=== PATIENT | male | born 1965 | race Caucasian/White ===

== ENCOUNTER → 2017-04-25 | Outpatient (CLI) | payer MEDICAID ==
[2014-08-29 09:15] VITALS: BMI 28.6
[~2017-04-25] MED LIST: ACET-1966 PO; ALB17R INH; ALBU8.5H12 IH; AMO500 PO; BACDS PO; BENZ200C38 PO; CEFU500T10 PO; CEP250 PO; CEP500 PO; CIP500 PO; CIPR-214 PO; CIPR-344 PO; CIPR-368 PO; CLIN300C99 PO; CYC10 PO; CYCL10TA29 PO; FAM20 PO; FLONASE; FLUC150T40 PO; GAB300 PO; HYDR-3083 PO; HYDR-385 PO; HYDR-4309 PO; IBU600 PO; IBUP800T37 PO; LAMO25TA4 PO; LEVO500T83 PO; LISI2.5T60 PO; LOR5 PO; LOR5/325 PO; LOR7.5/325 PO; MEDROL DOSEPAK; MEPE50TA29 PO; METR-1 PO; METR-160 PO; MIL50PT GT; MUSCLE RELAXANT; NAP250 PO; NAPR-1043 PO; NITR-1 PO; NITR-57 PO; NO MEDS; OMEP-137 PO; OXYB5TAB80 PO; PANT40TA65 PO; PEN VK PO; PEN250 PO; PENICILLIN; PER PO; PHEN100T27 PO; PHEN200T32 PO; PHENA200 PO; PRE20 PO; PRED-1 PO; PRED20TA6 PO; PRO25 PO; PROM-110 PO; SULF-198 PO; TRAM-627 PO; VICODIN PO; ZPAK; [UNRECOGNIZED DRUG - OTHER]; [UNRECOGNIZED DRUG - REMARK]; [UNRECOGNIZED DRUG - REMARK]
--- NOTE | 2017-04-25 15:09 | RADIOLOGY IMAGING REPORT ---
FACILITY: [facility] PATIENT NAME: Master Bush : 1965 MR: [id number] V: [id number] EXAM DATE: ORDERING PHYSICIAN: OSMIN QUINTEROS TECHNOLOGIST: Location: [facility] [place] Patient: Master Bush : 1965 Visit/Account:[id number] Date of Sevice: 04/25/2017 EXAMINATION: Left shoulder, 3 views 04/25/2017 1:59 PM HISTORY: Left shoulder pain. No known injury. COMPARISON: None FINDINGS: Mild spurring or hypertrophy of the AC joint. Subacromial joint space is well-preserved. There is some heterogeneity and lucencies in the humeral head along the cuff insertion. Glenohumera l articulation is normal. No acute-appearing bony finding. IMPRESSION: AC joint hypertrophy or spurring and humeral head findings which can be secondary feature s of cuff pathology. Report Dictated By: Ricardo Cat MD at 04/25/2017 3:04 PM Report E-Signed By: Ricardo Cat MD at 04/25/2017 3:06 PM WSN:[email or web address]
--- NOTE | 2017-04-25 15:19 | RADIOLOGY IMAGING REPORT ---
FACILITY: [facility] PATIENT NAME: Master Bush : 1965 MR: [id number] V: [id number] EXAM DATE: ORDERING PHYSICIAN: OSMIN QUINTEROS TECHNOLOGIST: Location: [facility] Patient: Master Bush : 1965 Visit/Account:[id number] Date of Sevice: 04/25/2017 EXAMINATION: MRI lumbar spine without IV contrast HISTORY: Low back pain, left lower extremity radiation. COMPARISON: Lumbar spine radiographs from 01/30/[address] of the lumbar spine from 08/11/2015. TECHNIQUE: Multi-planar, multi-sequence lumbar spine MRI was performed without intravenous contrast administration. FINDINGS: Alignment: Normal. Vertebral marrow signal: Degenerative endplate changes on the left at L5-S1. Distal thoracic cord: Negative. Conus: negative, terminates at the mid L1 level. Cauda equina: Negative. Paravertebral soft tissues: Negative. Visualized abdominal and pelvic structures: Negative. Disc spaces: There is disc desiccation of the lumbar spine. Lower thoracic spine: Normal. L1-2: Anterior bony spurring with a mild concentric disc bulge. No significant central canal or fora fuentes stenosis. L2-3: Anterior bony spurring with a broad-based disc protrusion with annular tear, bilateral facet hy pertrophy and mild ligamentum flavum laxity. Mild bilateral lateral recess stenosis and mild bilater al foraminal stenosis, without significant central canal stenosis. L3-4: Mild concentric disc bulge with bilateral facet hypertrophy and mild ligamentum flavum laxity. Mild bilateral lateral recess stenosis and mild bilateral foraminal stenosis. No significant centra l canal stenosis. L4-5: Mild concentric disc bulge and bilateral facet hypertrophy and ligamentum flavum laxity. Mild bilateral foraminal stenosis without significant central canal stenosis. L5-S1: Mild disc space narrowing with a moderate disc bulge eccentric to the left and bilateral facet hypertrophy. Mild bilateral lateral recess stenosis, moderate right and moderate to severe left for aminal stenosis, with mild mass effect on the foraminal left L5 nerve root. No significant central c anal stenosis. IMPRESSION: 1. Degenerative disc disease and facet arthropathy is worst at L5-S1 where there is moderate right a nd moderate to severe left foraminal stenosis. Please see the findings for description of individual level disease. 2. Annular tear at L2-3. Report Dictated By: Le Moyer MD at 04/25/2017 3:10 PM Report E-Signed By: Le Moyer MD at 04/25/2017 3:15 PM WSN:[id number]
== END ==
LOC: RAD 01:46
PROVIDERS: ATTEND Family Medicine
DX: M51.36 Other intervertebral disc degeneration, lumbar region (principal); M51.37 Other intervertebral disc degeneration, lumbosacral region; M51.26 Other intervertebral disc displacement, lumbar region; M51.27 Other intervertebral disc displacement, lumbosacral region; M75.82 Other shoulder lesions, left shoulder
CPT/HCPCS: 72148

== ENCOUNTER 2017-05-18 20:08 | Emergency (ER) | payer MEDICAID ==
[2014-08-29 09:15] VITALS: Ht 177.8 cm; Wt 98.9 kg
[~2017-05-18] VITALS: Ht 177.8 cm; Wt 98.9 kg
--- NOTE | 2017-05-18 20:15 | ER Report ---
History and Physical Time Seen By MD: 20:15 HPI/ROS CHIEF COMPLAINT: Right flank pain HISTORY OF PRESENT ILLNESS: 51-year-old male patient presents to emergency room with complaint of right flank pain. Patient states that he is not been feeling well for the past 3 days. Patient states that he has a history of kidney disease. He states that he has had some problems with being constipated recently. He states that his taken some stool softeners and then Ex-Lax. He states he was finally able to have a good bowel movement. States it initially was hard, then stated that he had episodes diarrhea. He states that all day today that he's been having normal bowel movements. Patient states that he is noticed that he is having some pain with urination. He denies having any fevers , chills, vomiting. Patient states that he has been nauseated. He states he is not taking any medication for this. He states he does have some discomfort with urination. He states that that is causing some irritation to his hemorrhoids. REVIEW OF SYSTEMS: Respiratory: No cough, no dyspnea. Cardiovascular: No chest pain, no palpitations. Gastrointestinal: No vomiting, no abdominal pain. Musculoskeletal: As noted above. Allergies: Coded Allergies: codeine (Verified Allergy, Mild, 05/18/17) oxycodone (Verified Allergy, Mild, BAD NIGHTMARES, 05/18/17) gabapentin (Verified Allergy, Unknown, 05/18/17) Uncoded Allergies: BLEACH (Allergy, Unknown, 08/23/13) Home Meds Reported Medications Pantoprazole Sodium (PANTOPRAZOLE SODIUM) 40 Mg Tablet.dr, 40 MG PO QAM, TAB.SR 05/18/17 Tramadol Hcl (TRAMADOL HCL) 50 Mg Tablet, 50-100 MG PO Q4-6H, TAB 05/18/17 Discontinued Reported Medications Milnacipran (SAVELLA) 50 Mg Tab, 50 MG GT, TAB 07/25/16 Lisinopril (LISINOPRIL) 2.5 Mg Tablet, 2.5 MG PO QDAY 07/25/16 Discontinued Scripts Pantoprazole Sodium (PANTOPRAZOLE SODIUM) 40 Mg Tablet.dr, 1 TAB PO QAM, #60 TAB 6 Refills Take 1 tablet 1/2 hour before eating every morning. 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 Patient has surgical history of fistula repair, cystoscopy, tonsillectomy, cyst removed. Patient has a family medical history of cancer. Reviewed Nurses Notes: Yes Hx Smoking: Yes (1 PPD SMOKER, 1 CAN CHEW EVERY 2 MOS.) Smoking Status: Current: Every Day Smoker Exposure to Second Hand Smoke?: No Hx Substance Use Disorder: No Hx Alcohol Use: Yes Constitutional Vital Sign - Last 24 Hours 05/18/17 20:13 Temp 97.8 Pulse 90 Resp 16 B/P (MAP) 131/88 Pulse Ox 92 O2 Delivery Room Air Physical Exam General Appearance: The patient is alert, has no immediate need for airway protection and no current signs of toxicity. [ ] Respiratory: Chest is non tender, lungs are clear to auscultation. Cardiac: regular rate and rhythm Gastrointestinal: Abdomen is soft and non tender, no masses, bowel sounds normal. Patient has right-sided CVA tenderness. Musculoskeletal: Neck: Neck is supple and non tender. Extremities have full range of motion and are non tender. Skin: No rashes or lesions. DIFFERENTIAL DIAGNOSIS: After history and physical exam differential diagnosis was considered for kidney stone, kidney failure, urinary tract infection, pyelonephritis. Medical Decision Making Data Points Result Diagram: 05/18/17203405/18/172034 Laboratory Hematology Test 05/18/17 20:30 05/18/17 20:35 Urine Color Yellow Urine Clarity Clear Urine pH 5.0 pH (4.8-9.5) Urine Specific [place] 1.019 Urine Protein Negative mg/dL (NEGATIVE) Urine Glucose (UA) Negative mg/dL (NEGATIVE) Urine Ketones Negative mg/dL (NEGATIVE) Urine Blood Large (NEGATIVE) Urine Nitrite Negative (NEGATIVE) Urine Bilirubin Negative (NEGATIVE) Urine Urobilinogen Negative mg/dL (0.2-1.9) Urine Leukocyte Esterase Negative (NEGATIVE) Urine RBC 14 /HPF (0-2/HPF) Urine WBC 2 /HPF (0-5/HPF) Urine Squamous Epithelial Cells None /LPF (</=FEW) Urine Bacteria Negative /HPF (NONE-FEW) Urine Mucus None /HPF (NONE-FEW) Red Blood Count 5.22 M/uL (4.00-5.60) Mean Corpuscular Volume 97.3 fL (80.0-96.0) Mean Corpuscular Hemoglobin 33.5 pg (26.0-33.0) Mean Corpuscular Hemoglobin Concent 34.4 g/dL (32.0-36.0) Red Cell Distribution Width 13.8 % (11.5-14.5) Mean Platelet Volume 10.3 fL (7.2-11.1) Neutrophils (%) (Auto) 51.9 % (39.4-72.5) Lymphocytes (%) (Auto) 34.4 % (17.6-49.6) Monocytes (%) (Auto) 9.9 % (4.1-12.4) Eosinophils (%) (Auto) 3.1 % (0.4-6.7) Basophils (%) (Auto) 0.7 % (0.3-1.4) Nucleated RBC Relative Count (auto) 0.0 /100WBC Neutrophils # (Auto) 4.9 K/uL (2.0-7.4) Lymphocytes # (Auto) 3.2 K/uL (1.3-3.6) Monocytes # (Auto) 0.9 K/uL (0.3-1.0) Eosinophils # (Auto) 0.3 K/uL (0.0-0.5) Basophils # (Auto) 0.1 K/uL (0.0-0.1) Nucleated RBC Absolute Count (auto) 0.00 K/uL Sodium Level 137 mmol/L (137-145) Potassium Level 3.5 mmol/L (3.5-5.0) Chloride Level 102 mmol/L (98-107) Carbon Dioxide Level 25 mmol/L (22-30) Blood Urea Nitrogen 17 mg/dl (9-21) Creatinine 1.40 mg/dl (0.66-1.25) Glomerular Filtration Rate Calc 53.2 Random Glucose 100 mg/dl (75-110) Calcium Level 9.0 mg/dl (8.4-10.2) Total Bilirubin 0.7 mg/dl (0.2-1.3) Aspartate Amino Transf (AST/SGOT) 23 U/L (0-35) Alanine Aminotransferase (ALT/SGPT) 43 U/L (0-56) Alkaline Phosphatase 66 U/L (0-126) Total Protein 7.8 gm/dl (6.3-8.2) Albumin 3.9 g/dl (3.5-5.0) Chemistry Test 05/18/17 20:30 05/18/17 20:35 Urine Color Yellow Urine Clarity Clear Urine pH 5.0 pH (4.8-9.5) Urine Specific Sodus 1.019 Urine Protein Negative mg/dL (NEGATIVE) Urine Glucose (UA) Negative mg/dL (NEGATIVE) Urine Ketones Negative mg/dL (NEGATIVE) Urine Blood Large (NEGATIVE) Urine Nitrite Negative (NEGATIVE) Urine Bilirubin Negative (NEGATIVE) Urine Urobilinogen Negative mg/dL (0.2-1.9) Urine Leukocyte Esterase Negative (NEGATIVE) Urine RBC 14 /HPF (0-2/HPF) Urine WBC 2 /HPF (0-5/HPF) Urine Squamous Epithelial Cells None /LPF (</=FEW) Urine Bacteria Negative /HPF (NONE-FEW) Urine Mucus None /HPF (NONE-FEW) White Blood Count 9.4 k/uL (4.5-11.0) Red Blood Count 5.22 M/uL (4.00-5.60) Hemoglobin 17.5 g/dL (14.0-18.0) Hematocrit 50.8 % (42.0-52.0) Mean Corpuscular Volume 97.3 fL (80.0-96.0) Mean Corpuscular Hemoglobin 33.5 pg (26.0-33.0) Mean Corpuscular Hemoglobin Concent 34.4 g/dL (32.0-36.0) Red Cell Distribution Width 13.8 % (11.5-14.5) Platelet Count 145 K/uL (150-450) Mean Platelet Volume 10.3 fL (7.2-11.1) Neutrophils (%) (Auto) 51.9 % (39.4-72.5) Lymphocytes (%) (Auto) 34.4 % (17.6-49.6) Monocytes (%) (Auto) 9.9 % (4.1-12.4) Eosinophils (%) (Auto) 3.1 % (0.4-6.7) Basophils (%) (Auto) 0.7 % (0.3-1.4) Nucleated RBC Relative Count (auto) 0.0 /100WBC Neutrophils # (Auto) 4.9 K/uL (2.0-7.4) Lymphocytes # (Auto) 3.2 K/uL (1.3-3.6) Monocytes # (Auto) 0.9 K/uL (0.3-1.0) Eosinophils # (Auto) 0.3 K/uL (0.0-0.5) Basophils # (Auto) 0.1 K/uL (0.0-0.1) Nucleated RBC Absolute Count (auto) 0.00 K/uL Glomerular Filtration Rate Calc 53.2 Calcium Level 9.0 mg/dl (8.4-10.2) Total Bilirubin 0.7 mg/dl (0.2-1.3) Aspartate Amino Transf (AST/SGOT) 23 U/L (0-35) Alanine Aminotransferase (ALT/SGPT) 43 U/L (0-56) Alkaline Phosphatase 66 U/L (0-126) Total Protein 7.8 gm/dl (6.3-8.2) Albumin 3.9 g/dl (3.5-5.0) Urinalysis Test 05/18/17 20:30 Urine Color Yellow Urine Clarity Clear Urine pH 5.0 pH (4.8-9.5) Urine Specific Sodus 1.019 Urine Protein Negative mg/dL (NEGATIVE) Urine Glucose (UA) Negative mg/dL (NEGATIVE) Urine Ketones Negative mg/dL (NEGATIVE) Urine Blood Large (NEGATIVE) Urine Nitrite Negative (NEGATIVE) Urine Bilirubin Negative (NEGATIVE) Urine Urobilinogen Negative mg/dL (0.2-1.9) Urine Leukocyte Esterase Negative (NEGATIVE) Urine RBC 14 /HPF (0-2/HPF) Urine WBC 2 /HPF (0-5/HPF) Urine Squamous Epithelial Cells None /LPF (</=FEW) Urine Bacteria Negative /HPF (NONE-FEW) Urine Mucus None /HPF (NONE-FEW) ED Course/Re-evaluation ED Course Patient was admitted to exam room, history of physical were obtained. Differential diagnoses were considered. On examination patient has some CVA tenderness/on the right side. A CBC, CMP, urinalysis were obtained. The labs look fairly consistent with normal. His creatinine was 1.4 which is up slightly from last month which is 1.2. Urinalysis was done which showed large blood, however on microscopic evaluation there was only 14 red blood cells per high- power field. That is approximately where he runs. Last July he had 88 and 7 red blood cells on 2 separate exams. We will go ahead and have him follow-up with his primary care provider in the next week. He is to follow-up with urology and nephrology as directed. I discussed this with the patient who verbalized understanding and agreement with plan. Decision to Disposition Date: May 18, 2017 Decision to Disposition Time: 21:07 Depart Departure Latest Vital Signs Vital Signs Date Time Temp Pulse Resp B/P (MAP) Pulse Ox O2 Delivery O2 Flow Rate FiO2 05/18/17 20:13 97.8 90 16 131/88 92 Room Air Impression: Primary Impression: Right flank discomfort Condition: Improved Disposition: HOME OR SELF-CARE Referrals: OSMIN QUINTEROS DO (PCP) Patient Instructions: Flank Pain (ED) Additional Instructions: Limit activity by pain. Get plenty of rest. Follow up with your primary care provider in the next week. Continue with normal medications. Your urine looks good, continue to follow up with urology and Nephrology as directed. DONIS FLOODP May 18, 2017 20:15
[2017-05-18] MEDS ORDERED: NS(*) 0.9% 1000 ML BAG 1,000 ML IV ONE (20:25)
[2017-05-18] MEDS ORDERED: TRAM-420 PO (20:27)
[2017-05-18] MEDS ORDERED: PANT40TA65 PO (20:28)
[2017-05-18 20:43] LABS: PLATELET COUNT, AUTOMATED 145 K/uL (150-450)
[2017-05-18 21:00] VITALS: BP 116/79
== END 2017-05-18 21:27 | disposition home or self-care (01) ==
LOC: ER 20:21
DX: R10.823 Right lower quadrant rebound abdominal tenderness (principal)
CPT/HCPCS: 81001; 82040; 82247; 82310; 82374; 82435; 82565; 82947; 84075; 84132; 84155; 84295; 84450; 84460; 84520; 85025; 99283

== ENCOUNTER → 2017-09-22 | Outpatient (CLI) | payer MEDICAID ==
[2014-08-29 09:15] VITALS: BMI 28.6
[~2017-09-22] MED LIST changes: +AMOX-559 PO; +FLUT16SP19 NS; +TRAM-420 PO
--- NOTE | 2017-09-22 19:19 | RADIOLOGY IMAGING REPORT ---
FACILITY: [facility] PATIENT NAME: Master Bush : 1965 MR: [id number] V: [id number] EXAM DATE: ORDERING PHYSICIAN: OSMIN QUINTEROS TECHNOLOGIST: Location: [facility] - [place] Patient: Master Bush : 1965 Visit/Account:[id number] Date of Sevice: 09/22/2017 Chest with lateral, 2 views. HISTORY: Cough, smoking history. COMPARISON: 08/29/2014. The heart and mediastinum are unremarkable. Pulmonary vessels are unremarkable. The lungs are mildl y voluminous. The pleural surfaces are unremarkable. No pneumothorax. Mild degenerative changes are p resent in the spine and shoulders. IMPRESSION: Voluminous lungs. Otherwise no evidence of acute cardiopulmonary disease. Report Dictated By: Jovany Ramirez MD at 09/22/2017 7:13 PM Report E-Signed By: Jovany Ramirez MD at 09/22/2017 7:14 PM [id number]
== END ==
LOC: RAD 17:37
PROVIDERS: ATTEND Family Medicine
DX: R91.8 Other nonspecific abnormal finding of lung field (principal)
CPT/HCPCS: 71046

== ENCOUNTER → 2017-09-22 | Outpatient (CLI) | payer MEDICAID ==
[2014-08-29 09:15] VITALS: Ht 177.8 cm; Wt 91.7 kg
[~2017-09-22] VITALS: Ht 177.8 cm; Wt 91.7 kg
[~2017-09-22] MED LIST changes: +LIDOCAINE/SOD BICARB 8.4% SYR ID ONE; +MIDAZOLAM 2 MG/2 ML VIAL IVP PRN; +NORMOSOL R SOLN(*) 1000 ML BAG 1,000 ML IV PRN; +ceFAZolin(*) 1 GM VIAL 1 GM in NS(*) 0.9% 100 ML ADDVANT BAG 100 ML IVPB ONE
[2017-09-22 11:19] LABS: PLATELET COUNT, AUTOMATED 152 K/uL (150-450)
== END ==
LOC: LAB 08:00 → EDSTATUS 09-26 09:20
PROVIDERS: ATTEND Urology
DX: Z01.812 Encounter for preprocedural laboratory examination (principal)
CPT/HCPCS: 36415; 81001; 82040; 82247; 82310; 82374; 82435; 82565; 82947; 84075; 84132; 84153; 84155; 84295; 84450; 84460; 84520; 85025; 87088

== ENCOUNTER → 2017-11-21 | Outpatient (REF) | payer MEDICAID ==
[2014-08-29 09:15] VITALS: BMI 28.6
[~2017-11-21] MED LIST changes: -LIDOCAINE/SOD BICARB 8.4% SYR ID ONE; -MIDAZOLAM 2 MG/2 ML VIAL IVP PRN; -NORMOSOL R SOLN(*) 1000 ML BAG 1,000 ML IV PRN; -ceFAZolin(*) 1 GM VIAL 1 GM in NS(*) 0.9% 100 ML ADDVANT BAG 100 ML IVPB ONE
== END ==
LOC: ZZSENDIN 14:42
PROVIDERS: ATTEND Physician Assistant Medical
DX: R31.9 Hematuria, unspecified (principal)
CPT/HCPCS: 81001

== ENCOUNTER → 2017-12-19 | Day surgery (SDC) | payer MEDICAID ==
[2014-08-29 09:15] VITALS: Ht 180.3 cm; Wt 91.6 kg
--- NOTE | 2017-12-14 18:40 | HISTORY AND PHYSICAL ---
DATE OF ADMISSION: December 19, 2017 CHIEF COMPLAINT Hematuria. HISTORY OF PRESENT ILLNESS Patient is a 52-year-old white male with a long history of hematuria who has been followed in the Urology Clinic for several years. He is also experiencing an episode of gross hematuria by report. His last anesthetic cystoscopy was three years ago. In the past, the patient has undergone anesthetic cystoscopies as well as cytologies which have been normal. He does have some mild chronic renal insufficiency and is followed by Dr. Bellamy. He was noted to have questionable increasing proteinuria on his last visit. However, most recent urinalysis performed on the 21 of November showed no proteinuria. He did have 22 red blood cells per high-power field. The patient is now being brought to the operating room for planned anesthetic cystoscopy with bilateral retrograde pyelograms. PAST MEDICAL HISTORY 1. Chronic kidney disease. 2. Hematuria. 3. Obstructive sleep apnea. 4. Gastroesophageal reflux disease. 5. Bipolar disease. 6. Eczema. 7. Low back pain. 8. Diverticulitis. 9. Fibromyalgia with chronic pain. 10. Sinusitis. PAST SURGICAL HISTORY 1. Meatotomy with urethral dilation. 2. Partial colectomy and cystectomy with closure of colovesical fistula. 3. Cystoscopy. CURRENT MEDICATIONS 1. Cyclobenzaprine. 2. Tramadol. 3. Albuterol. 4. Oxygen. 5. Amitriptyline. 6. Fluconazole. 7. Loratadine. ALLERGIES PERCOCET and GABAPENTIN. SOCIAL HISTORY Patient is single, lives in [place], [place], and is a chronic smoker. REVIEW OF SYSTEMS Patient denies chest pain, shortness of breath, nausea, vomiting, fever, chills, flank pain, change in weight, or bleeding disorder. PHYSICAL EXAMINATION GENERAL: Patient is a well-developed, well-nourished, white male in no acute distress. HEENT: Normocephalic, atraumatic. CHEST: Clear to auscultation bilaterally. CARDIOVASCULAR: Regular rate and rhythm. ABDOMEN: Soft, nontender. No masses palpated. GENITOURINARY: Deferred to the OR. EXTREMITIES: Without clubbing, cyanosis, or edema. NEUROLOGIC: Nonfocal. IMPRESSION A 52-year-old white male with chronic kidney disease stage 3 with hematuria. He now complains of "sinus infection" and wants to postpone OR again. PLAN Will cancel planned anesthetic cystoscopy with bilateral retrograde pyelograms and possible ureteroscopy and see Mr. Bush in the office in 4-6 weeks to again discuss workup options. ANIL
[2017-12-16 15:42] LABS: PLATELET COUNT, AUTOMATED 167 K/uL (150-450)
[~2017-12-19] VITALS: Ht 180.3 cm; Wt 91.6 kg
[~2017-12-19] MED LIST changes: +AMIT-108 PO; +DOCU100T19 PO; +FAMOTIDINE 20 MG TAB PO ONE; +IOPAMIDOL-200 50 ML VIAL IS ONE; +LIDOCAINE/SOD BICARB 8.4% SYR ID ONE; +LORA-629 PO; +MIDAZOLAM 10 MG/5 ML SYRUP PO ONE; +MIDAZOLAM 2 MG/2 ML VIAL IVP PRN; +NORMOSOL R SOLN(*) 1000 ML BAG 1,000 ML IV PRN; +ceFAZolin(*) 1 GM VIAL 1 GM in NS(*) 0.9% 100 ML ADDVANT BAG 100 ML IVPB ONE; +ceFAZolin(*) 1 GM VIAL 1 GM, GENTAMICIN(*) 80 MG/2 ML VIAL 60 MG in NS 0.9% IRRIGATION ... IR ONE
[2017-12-19 07:17] VITALS: BP 124/95
== END ==
LOC: OR 00:41
PROVIDERS: ATTEND Urology
DX: R31.9 Hematuria, unspecified (principal)
CPT/HCPCS: 81001; 82040; 82247; 82310; 82374; 82435; 82565; 82947; 84075; 84132; 84153; 84155; 84295; 84450; 84460; 84520; 85025; 87088; Q9966

== ENCOUNTER → 2018-01-26 | Outpatient (CLI) | payer MEDICAID ==
[2014-08-29 09:15] VITALS: BMI 28.6
[~2018-01-26] MED LIST changes: -FAMOTIDINE 20 MG TAB PO ONE; -HYDR-4309 PO; +HYDR-653 PO; -IOPAMIDOL-200 50 ML VIAL IS ONE; -LIDOCAINE/SOD BICARB 8.4% SYR ID ONE; -MIDAZOLAM 10 MG/5 ML SYRUP PO ONE; -MIDAZOLAM 2 MG/2 ML VIAL IVP PRN; -NORMOSOL R SOLN(*) 1000 ML BAG 1,000 ML IV PRN; -ceFAZolin(*) 1 GM VIAL 1 GM in NS(*) 0.9% 100 ML ADDVANT BAG 100 ML IVPB ONE; -ceFAZolin(*) 1 GM VIAL 1 GM, GENTAMICIN(*) 80 MG/2 ML VIAL 60 MG in NS 0.9% IRRIGATION ... IR ONE
--- NOTE | 2018-01-26 15:44 | RADIOLOGY IMAGING REPORT ---
[place] [facility] [place] Master Bush : 1965 MR: [id number] V: [id number] EXAM DATE: [id number] ORDERING PHYSICIAN: DEMETRIUS WILKERSON TECHNOLOGIST: Location: [facility] - [place] Patient: Master Bush : 1965 Visit/Account:[id number] Date of Sevice: 01/26/2018 Exam type: HAND COMPLETE LEFT History: Fall onto left hand, pain in base of thumb radiating to left arm Comparison: None. Findings: There moderate degenerative changes at the first carpometacarpal articulation. There appears to be a bony fragment projecting just medial and proximal to the base of the left first metacarpal. The mar gins appear relatively smooth suggesting this is a chronic injury although correlation with symptoms needed. There Is a very faint lucency traversing the waist of the navicular bone. A navicular view may be helpful for further evaluation IMPRESSION: 1. Faint lucency traverses the waist of the navicular bone. A navicular view may be helpful for fur ther evaluation Moderate degenerative changes of the first carpometacarpal articulation There appears to be a bony fragment projecting just medial proximal to the base of left first metacar pal. The margins appear relatively smooth suggesting this is a chronic injury although correlation w ith symptoms needed Report Dictated By: Omaira Price MD at 01/26/2018 3:34 PM Report E-Signed By: Omaira Price MD at 01/26/2018 3:40 PM [email or web address]
== END ==
LOC: RAD 15:02
PROVIDERS: ATTEND Physician Assistant Medical
DX: M79.642 Pain in left hand (principal)

== ENCOUNTER → 2018-01-31 | Outpatient (CLI) | payer MEDICAID ==
[2014-08-29 09:15] VITALS: BMI 28.6
[~2018-01-31] MED LIST changes: +TAMS0.4C70 PO
== END ==
LOC: LAB 16:00
PROVIDERS: ATTEND Urology
DX: R30.0 Dysuria (principal); R10.9 Unspecified abdominal pain; R10.32 Left lower quadrant pain; R10.13 Epigastric pain
CPT/HCPCS: 81001

== ENCOUNTER → 2018-02-15 | Outpatient (CLI) | payer MEDICAID ==
[2014-08-29 09:15] VITALS: BMI 28.6
[~2018-02-15] MED LIST changes: +DIA5 PO; -METR-160 PO; +METR500T54 PO
== END ==
LOC: LAB 15:57
PROVIDERS: ATTEND Urology
DX: R10.32 Left lower quadrant pain (principal)
CPT/HCPCS: 88108

== ENCOUNTER 2018-02-16 03:58 | Emergency (ER) | payer MEDICAID ==
[2014-08-29 09:15] VITALS: Wt 93.5 kg
[2018-02-16 04:01] VITALS: BP 123/91
--- NOTE | 2018-02-16 04:06 | ER Report ---
History and Physical Time Seen By MD: 04:05 Hx. of Stated Complaint: PT'S LITTLE DOG JUMPED ON HIM, LANDED ON HIS FACE SCRATCHING HIS LEFT EYE HPI/ROS CHIEF COMPLAINT: eye injury HISTORY OF PRESENT ILLNESS: This is a 52 year old male. He had an injury to his eye tonight. His [place] jumped to him and landed on his face with his claw scratching his left eye. He has blurred or fuzzy vision and pain. Allergies: Coded Allergies: codeine (Verified Allergy, Mild, 02/16/18) oxycodone (Verified Allergy, Mild, BAD NIGHTMARES, 02/16/18) gabapentin (Verified Allergy, Unknown, 02/16/18) Uncoded Allergies: BLEACH (Allergy, Unknown, 08/23/13) Home Meds Active Scripts Tamsulosin Hcl (TAMSULOSIN HCL) 0.4 Mg Cap.er.24h, 0.4 MG PO DAILY for 90 Days, #90 CAP 4 Refills Take one capsule daily at bedtime Prov:RICKI PADGETT MD 02/15/18 Diazepam (VALIUM) 5 Mg Tablet, 5 MG PO DIRECTED PRN for ANXIETY for 1 Day, #2 TAB Take 2 tablets one hour prior to office cystoscopy procedure Prov:RICKI PADGETT MD 02/08/18 Tamsulosin Hcl (TAMSULOSIN HCL) 0.4 Mg Cap.er.24h, 0.4 MG PO DAILY for prostatism for 14 Days, #14 CAP One pill at bedtime daily Prov:RICKI PADGETT MD 01/31/18 Reported Medications Docusate Sodium (STOOL SOFTENER) 100 Mg Tablet, 100 MG PO DAILY 12/12/17 Amitriptyline Hcl (AMITRIPTYLINE HCL) 50 Mg Tablet, 50 MG PO QHS, TAB 12/12/17 Loratadine (LORATADINE) 10 Mg Tablet, 10 MG PO DAILY 12/12/17 Fluticasone Prop 50 Mcg Ns (FLONASE 50 MCG NS) 16 Gm Jasper.susp, 2 SPRAYS NS QDAY, BOT 09/20/17 Pantoprazole Sodium (PANTOPRAZOLE SODIUM) 40 Mg Tablet.dr, 40 MG PO QAM, TAB.SR 05/18/17 Tramadol Hcl (TRAMADOL HCL) 50 Mg Tablet, 50-150 MG PO QDAY PRN for PAIN, TAB 05/18/17 Reviewed Nurses Notes: Yes Hx Smoking: Yes (1.5 PPD SMOKER, 1 CAN CHEW EVERY 2 MOS.) Smoking Status: Current: Every Day Smoker Exposure to Second Hand Smoke?: No Hx Substance Use Disorder: No Hx Alcohol Use: Yes Constitutional Vital Sign - Last 24 Hours 02/16/18 04:01 Temp 97.3 Pulse 85 Resp 16 B/P (MAP) 123/91 Pulse Ox 92 O2 Delivery Room Air Physical Exam General Appearance: [Alert, no distress.] Used Proparacaine 0.5% combined with fluorescein drops to numb the left eye. Eyes: Pupils equal, round and reactive to light. No pallor. No scleral icterus. Left eye with moderate injection. There is no discharge. Examination, including under the upper lid, reveals no foreign body. Fluorescein exam r eveals uptake in the lower right area of the left eye sclera. Skin: Periorbital skin is mildly inflamed. Mild abrasion of the lower eyelid medially on the left eye. DIFFERENTIAL DIAGNOSIS: After history and physical exam differential diagnosis was considered for a corneal abrasion Medical Decision Making ED Course/Re-evaluation ED Course Rinsed the eye with normal saline after the exam. Dispensed Tobramycin ophthalmic drops. Decision to Disposition Date: Feb 16, 2018 Decision to Disposition Time: 04:16 Depart Departure Latest Vital Signs Vital Signs Date Time Temp Pulse Resp B/P (MAP) Pulse Ox O2 Delivery O2 Flow Rate FiO2 02/16/18 04:01 97.3 85 16 123/91 92 Room Air Impression: Primary Impression: Corneal abrasion Condition: Improved Disposition: HOME OR SELF-CARE Referrals: OSMIN QUINTEROS DO (PCP) Patient Instructions: Corneal Abrasion (ED) Additional Instructions: Tobramycin ophthalmic drops, apply one drop in the left eye four times a day for 5 days. Problem Qualifiers Primary Impression: Corneal abrasion Encounter type: initial encounter Laterality: left Qualified Codes: S05.02XA - Injury of conjunctiva and corneal abrasion without foreign body, left eye, initial encounter LORENZO GARCIA MD Feb 16, 2018 04:06
[2018-02-16] MEDS ORDERED: PROPARACAI/FLUORESCEIN 5 ML OP DROPS OP ONE (04:10)
[2018-02-16] MEDS ORDERED: TOBRAMYCIN 0.3% OP SOLN 5 ML OS ONE (04:15)
== END 2018-02-16 04:25 | disposition home or self-care (01) ==
LOC: ER 04:24
DX: S05.02XA Injury of conjunctiva and corneal abrasion without foreign body, left eye, initial encounter (principal)
CPT/HCPCS: 99282

== ENCOUNTER → 2018-03-03 | Outpatient (CLI) | payer MEDICAID ==
[2014-08-29 09:15] VITALS: BMI 28.6
== END ==
LOC: LAB 15:13
PROVIDERS: ATTEND Urology
DX: R10.9 Unspecified abdominal pain (principal)
CPT/HCPCS: 81001; 87088

== ENCOUNTER 2018-04-05 14:36 | Emergency (ER) | payer MEDICAID ==
[2014-08-29 09:15] VITALS: Wt 97.5 kg
--- NOTE | 2018-04-05 14:46 | ER Report ---
History and Physical Time Seen By MD: 14:46 HPI/ROS CHIEF COMPLAINT: Fever, cold HISTORY OF PRESENT ILLNESS: 52-year-old male patient presents to emergency room with complaint of a fever and cold. Patient states this been going on for the last 3 days. He denies having any vomiting but states they're very nauseated. He states been having lots of cough and body aches. Patient states he does have a past medical history of fibromyalgia and believes that the cold is making his fibromyalgia act up. Patient states he's not had much of an appetite and has not eaten for the last 2 days. He states that he did have a fever of 102 last night. Patient states he's been taking NyQuil for this which has helped. He states that he was visited by his granddaughter who was ill when she got here. He states that she was already on antibiotics and he has same symptoms that she had. Allergies: Coded Allergies: codeine (Verified Allergy, Mild, 04/05/18) oxycodone (Verified Allergy, Mild, BAD NIGHTMARES, 04/05/18) gabapentin (Verified Allergy, Unknown, 04/05/18) Uncoded Allergies: BLEACH (Allergy, Unknown, 08/23/13) Home Meds Active Scripts Doxycycline Hyclate (DOXYCYCLINE HYCLATE) 100 Mg Tablet, 100 MG PO BID, #19 TAB Prov:DONIS FLOOD 04/05/18 Tamsulosin Hcl (TAMSULOSIN HCL) 0.4 Mg Cap.er.24h, 1 CAP PO DAILY for 90 Days, #90 CAP 4 Refills Take one capsule daily at bedtime Prov:PABLITO SCHMID MD 04/05/18 Discontinued Reported Medications Docusate Sodium (STOOL SOFTENER) 100 Mg Tablet, 100 MG PO DAILY 12/12/17 Amitriptyline Hcl (AMITRIPTYLINE HCL) 50 Mg Tablet, 50 MG PO QHS, TAB 12/12/17 Loratadine (LORATADINE) 10 Mg Tablet, 10 MG PO DAILY 12/12/17 Fluticasone Prop 50 Mcg Ns (FLONASE 50 MCG NS) 16 Gm [place].susp, 2 SPRAYS NS QDAY, BOT 09/20/17 Pantoprazole Sodium (PANTOPRAZOLE SODIUM) 40 Mg Tablet.dr, 40 MG PO QAM, TAB.SR 05/18/17 Tramadol Hcl (TRAMADOL HCL) 50 Mg Tablet, 50-150 MG PO QDAY PRN for PAIN, TAB 05/18/17 Discontinued Scripts Diazepam (VALIUM) 5 Mg Tablet, 5 MG PO DIRECTED PRN for ANXIETY for 1 Day, #2 TAB Take 2 tablets one hour prior to office cystoscopy procedure Prov:RICKI PADGETT MD 02/08/18 Tamsulosin Hcl (TAMSULOSIN HCL) 0.4 Mg Cap.er.24h, 0.4 MG PO DAILY for prostatism for 14 Days, #14 CAP One pill at bedtime daily Prov:RICKI PADGETT MD 01/31/18 Past Medical/Surgical History Patient has a past medical history of CVA, migraine, sleep apnea, oxygen night, asthma, smoker, fistula, chronic kidney disease, frequent UTI, fibromyalgia, arthritis, back pain, alcohol use, bipolar. Patient has a surgical history of cyst removed, tonsillectomy, cystoscopy, bladder surgery, bowel resection. Patient has a family medical history of cancer. Hx Smoking: Yes (1.5 PPD SMOKER, 1 CAN CHEW EVERY 2 MOS.) Smoking Status: Current: Every Day Smoker Exposure to Second Hand Smoke?: No Hx Substance Use Disorder: No Hx Alcohol Use: Yes Constitutional Vital Sign - Last 24 Hours 04/05/18 04/05/18 04/05/18 04/05/18 14:44 14:45 14:51 14:53 Temp 99.1 Pulse 118 109 Resp 16 B/P (MAP) 108/82 (91) 108/82 Pulse Ox 88 91 O2 Delivery Room Air O2 Flow Rate 2.0 04/05/18 15:00 B/P (MAP) 97/78 (84) Physical Exam General Appearance: The patient is alert, has no immediate need for airway protection and no current signs of toxicity. Respiratory: Chest is non tender, lungs are clear to auscultation. Cardiac: regular rate and rhythm Gastrointestinal: Abdomen is soft and non tender, no masses, bowel sounds normal. Musculoskeletal: Neck: Neck is supple and non tender. Extremities have full range of motion and are non tender. Skin: No rashes or lesions. DIFFERENTIAL DIAGNOSIS: After history and physical exam differential diagnosis was considered for fever in adults including but not limited to pneumonia, urinary tract infection, viral syndrome, and influenza. Medical Decision Making Data Points Result Diagram: 04/05/18 1455 04/05/18 1455 Laboratory Hematology Test 04/05/18 14:43 04/05/18 14:50 04/05/18 14:55 Urine Color Red Urine Clarity Cloudy Urine pH 5.0 pH (4.8-9.5) Urine Specific [place] 1.021 Urine Protein 100 mg/dL (NEGATIVE) Urine Glucose (UA) Negative mg/dL (NEGATIVE) Urine Ketones Negative mg/dL (NEGATIVE) Urine Blood Large (NEGATIVE) Urine Nitrite Negative (NEGATIVE) Urine Bilirubin Negative (NEGATIVE) Urine Urobilinogen 2.0 mg/dL (0.2-1.9) Urine Leukocyte Esterase Negative (NEGATIVE) Urine RBC 1252 /HPF (0-2/HPF) Urine WBC 73 /HPF (0-5/HPF) Urine WBC Clumps Mod /HPF Urine Squamous Epithelial Cells None /LPF (</=FEW) Urine Bacteria Few /HPF (NONE-FEW) Urine Mucus Few /HPF (NONE-FEW) Urine Yeast (Budding) Many /HPF Influenza Virus Type A (PCR) Negative (NEGATIVE) Influenza Virus Type B (PCR) Negative (NEGATIVE) Red Blood Count 5.51 M/uL (4.00-5.60) Mean Corpuscular Volume 98.0 fL (80.0-96.0) Mean Corpuscular Hemoglobin 33.8 pg (26.0-33.0) Mean Corpuscular Hemoglobin Concent 34.5 g/dL (32.0-36.0) Red Cell Distribution Width 13.8 % (11.5-14.5) Mean Platelet Volume 10.5 fL (7.2-11.1) Neutrophils (%) (Auto) 81.0 % (39.4-72.5) Lymphocytes (%) (Auto) 9.2 % (17.6-49.6) Monocytes (%) (Auto) 9.3 % (4.1-12.4) Eosinophils (%) (Auto) 0.1 % (0.4-6.7) Basophils (%) (Auto) 0.4 % (0.3-1.4) Nucleated RBC Relative Count (auto) 0.1 /100WBC Neutrophils # (Auto) 18.4 K/uL (2.0-7.4) Lymphocytes # (Auto) 2.1 K/uL (1.3-3.6) Monocytes # (Auto) 2.1 K/uL (0.3-1.0) Eosinophils # (Auto) 0.0 K/uL (0.0-0.5) Basophils # (Auto) 0.1 K/uL (0.0-0.1) Nucleated RBC Absolute Count (auto) 0.01 K/uL Peripheral Blood Smear Yes Y/N Sodium Level 136 mmol/L (137-145) Potassium Level 3.9 mmol/L (3.5-5.0) Chloride Level 101 mmol/L (98-107) Carbon Dioxide Level 22 mmol/L (22-30) Blood Urea Nitrogen 17 mg/dl (9-21) Creatinine 1.90 mg/dl (0.66-1.25) Glomerular Filtration Rate Calc 37.3 Random Glucose 106 mg/dl (75-110) Calcium Level 9.1 mg/dl (8.4-10.2) Total Bilirubin 0.8 mg/dl (0.2-1.3) Aspartate Amino Transf (AST/SGOT) 21 U/L (0-35) Alanine Aminotransferase (ALT/SGPT) 35 U/L (0-56) Alkaline Phosphatase 91 U/L (0-126) Total Protein 8.5 g/dl (6.3-8.2) Albumin 4.4 g/dl (3.5-5.0) Chemistry Test 04/05/18 14:43 04/05/18 14:50 04/05/18 14:55 Urine Color Red Urine Clarity Cloudy Urine pH 5.0 pH (4.8-9.5) Urine Specific [place] 1.021 Urine Protein 100 mg/dL (NEGATIVE) Urine Glucose (UA) Negative mg/dL (NEGATIVE) Urine Ketones Negative mg/dL (NEGATIVE) Urine Blood Large (NEGATIVE) Urine Nitrite Negative (NEGATIVE) Urine Bilirubin Negative (NEGATIVE) Urine Urobilinogen 2.0 mg/dL (0.2-1.9) Urine Leukocyte Esterase Negative (NEGATIVE) Urine RBC 1252 /HPF (0-2/HPF) Urine WBC 73 /HPF (0-5/HPF) Urine WBC Clumps Mod /HPF Urine Squamous Epithelial Cells None /LPF (</=FEW) Urine Bacteria Few /HPF (NONE-FEW) Urine Mucus Few /HPF (NONE-FEW) Urine Yeast (Budding) Many /HPF Influenza Virus Type A (PCR) Negative (NEGATIVE) Influenza Virus Type B (PCR) Negative (NEGATIVE) White Blood Count 22.8 k/uL (4.5-11.0) Red Blood Count 5.51 M/uL (4.00-5.60) Hemoglobin 18.6 g/dL (14.0-18.0) Hematocrit 54.1 % (42.0-52.0) Mean Corpuscular Volume 98.0 fL (80.0-96.0) Mean Corpuscular Hemoglobin 33.8 pg (26.0-33.0) Mean Corpuscular Hemoglobin Concent 34.5 g/dL (32.0-36.0) Red Cell Distribution Width 13.8 % (11.5-14.5) Platelet Count 154 K/uL (150-450) Mean Platelet Volume 10.5 fL (7.2-11.1) Neutrophils (%) (Auto) 81.0 % (39.4-72.5) Lymphocytes (%) (Auto) 9.2 % (17.6-49.6) Monocytes (%) (Auto) 9.3 % (4.1-12.4) Eosinophils (%) (Auto) 0.1 % (0.4-6.7) Basophils (%) (Auto) 0.4 % (0.3-1.4) Nucleated RBC Relative Count (auto) 0.1 /100WBC Neutrophils # (Auto) 18.4 K/uL (2.0-7.4) Lymphocytes # (Auto) 2.1 K/uL (1.3-3.6) Monocytes # (Auto) 2.1 K/uL (0.3-1.0) Eosinophils # (Auto) 0.0 K/uL (0.0-0.5) Basophils # (Auto) 0.1 K/uL (0.0-0.1) Nucleated RBC Absolute Count (auto) 0.01 K/uL Peripheral Blood Smear Yes Y/N Glomerular Filtration Rate Calc 37.3 Calcium Level 9.1 mg/dl (8.4-10.2) Total Bilirubin 0.8 mg/dl (0.2-1.3) Aspartate Amino Transf (AST/SGOT) 21 U/L (0-35) Alanine Aminotransferase (ALT/SGPT) 35 U/L (0-56) Alkaline Phosphatase 91 U/L (0-126) Total Protein 8.5 g/dl (6.3-8.2) Albumin 4.4 g/dl (3.5-5.0) Urinalysis Test 04/05/18 14:43 Urine Color Red Urine Clarity Cloudy Urine pH 5.0 pH (4.8-9.5) Urine Specific [place] 1.021 Urine Protein 100 mg/dL (NEGATIVE) Urine Glucose (UA) Negative mg/dL (NEGATIVE) Urine Ketones Negative mg/dL (NEGATIVE) Urine Blood Large (NEGATIVE) Urine Nitrite Negative (NEGATIVE) Urine Bilirubin Negative (NEGATIVE) Urine Urobilinogen 2.0 mg/dL (0.2-1.9) Urine Leukocyte Esterase Negative (NEGATIVE) Urine RBC 1252 /HPF (0-2/HPF) Urine WBC 73 /HPF (0-5/HPF) Urine WBC Clumps Mod /HPF Urine Squamous Epithelial Cells None /LPF (</=FEW) Urine Bacteria Few /HPF (NONE-FEW) Urine Mucus Few /HPF (NONE-FEW) Urine Yeast (Budding) Many /HPF EKG/Imaging Imaging EXAMINATION: CT abdomen and pelvis without IV contrast HISTORY: Elevated white count. Hematuria. Fever. TECHNIQUE: Axial CT images of the abdomen and pelvis were obtained without IV contrast, with coronal and sagittal 2D reconstructed images. One of the following dose optimization techniques was utilized in the performance of this exam: Automated exposure control; adjustment of the mA and/or kV according to the patient's size; or use of an iterative reconstruction technique. Specific details can be referenced in the facility's radiology CT exam operational policy. COMPARISON: CT abdomen/pelvis with IV contrast 11/05/2015. FINDINGS: Evaluation of the solid and viscus parenchymal organs is limited without the benefit of IV contrast. Liver: Fatty infiltration of the liver. Gallbladder and bile ducts: Negative. Spleen: Negative. Pancreas: Negative. Adrenal glands: Negative. Kidneys: Normal size and morphology of both kidneys. No urinary calculi or hyd ronephrosis. Bowel and peritoneum: The small bowel and colon are normal in caliber, without evidence of obstruction or any focal inflammatory process. Patent sigmoid anastomosis in the posterior left pelvis. Normal appendix. No free fluid or free intraperitoneal air. Pelvic structures: Negative. Lymph node assessment: Negative. Vessels: Mild vascular calcifications. Normal caliber abdominal aorta. Musculoskeletal: No acute osseous findings. Scattered degenerative changes along the spine. Body wall: Negative. Lung bases: Negative. IMPRESSION: 1. No acute intra-abdominal findings by noncontrast CT imaging. 2. Normal size and morphology of both kidneys. No urinary calculi or hy dronephrosis. Report Dictated By: Blair Godinez MD at 04/05/2018 4:06 PM Report E-Signed By: Blair Godinez MD at 04/05/2018 4:13 PM EXAMINATION: Chest 2 Views HISTORY: Fever. COMPARISON: 09/22/2017. FINDINGS: The lungs are clear. No focal consolidation or pleural fluid. No pneumothorax. Normal cardiomediastinal silhouette, with normal heart size and pulmonary vascularity. No acute osseous findings. IMPRESSION: No evidence of acute cardiopulmonary disease. Stable exam. Report Dictated By: Blair Godinez MD at 04/05/2018 3:22 PM Report E-Signed By: Blair Godinez MD at 04/05/2018 3:24 PM ED Course/Re-evaluation ED Course Patient was admitted and examined, history and physical were obtained. Differential diagnoses were considered. Examination lungs are clear, heart is regular, abdomen soft nontender. Patient states that his granddaughter been ill he has seemed symptoms. A chest x-ray, CBC, CMP, urinalysis were done. Chest x- ray was negative, CBC showed an elevated white count of 22,000, CMP showed a increase in the creatinine from 1.3-1.9, urinalysis showed gross hematuria with 73 white blood cells per high-power field in addition to 1200 red blood cells per high-power field. Influenza screen was done which was negative. With the increase in the creatinine as well as the hematuria a CT scan of the abdomen and pelvis was done. Results were unremarkable. I discussed the case with Dr. Padgett, urologist, who states the patient does have a appointment with his primary care provider tomorrow and recommended following up with him tomorrow. We discussed starting him on antibiotics. We'll go ahead and start him on doxycycline for a suspected urinary tract infection. Doxycycline is not impacted by the decreased kidney function and thus was chosen. Patient also had a urine culture performed. I discussed the findings of the labs as well as the imaging results with patient. I discussed with him my conversation with Dr. Padgett. We'll go ahead and discharge him home at this time. He is follow-up with his primary care provider tomorrow. Patient verbalized understanding and agreement with plan. Patient did receive a dose of doxycycline here in the emergency room. Decision to Disposition Date: Apr 05, 2018 Decision to Disposition Time: 16:42 Depart Departure Latest Vital Signs Vital Signs Date Time Temp Pulse Resp B/P (MAP) Pulse Ox O2 Delivery O2 Flow Rate FiO2 04/05/18 15:00 97/78 (84) 04/05/18 14:53 2.0 04/05/18 14:51 109 91 04/05/18 14:45 99.1 16 Room Air Impression: Primary Impression: Hematuria, gross Additional Impressions: UTI (urinary tract infection) Upper respiratory infection Condition: Improved Disposition: HOME OR SELF-CARE Referrals: OSMIN QUINTEROS DO (PCP) New Scripts Doxycycline Hyclate (DOXYCYCLINE HYCLATE) 100 Mg Tablet 100 MG PO BID, #19 TAB Prov: DONIS FLOOD 04/05/18 Patient Instructions: Hematuria (ED) Additional Instructions: Increase fluid intake. Follow up with your primary care provider tomorrow as scheduled. Take the antibiotics as directed. Get plenty of rest. Return to the ER if condition worsens. Problem Qualifiers Additional Impressions: UTI (urinary tract infection) Urinary tract infection type: acute cystitis Hematuria presence: with hematuria Qualified Codes: N30.01 - Acute cystitis with hematuria Upper respiratory infection URI type: unspecified viral URI Qualified Codes: J06.9 - Acute upper respiratory infection, unspecified DONIS FLOOD Apr 05, 2018 14:46
[2018-04-05] MEDS ORDERED: NS(*) 0.9% 1000 ML BAG 1,000 ML IV ONE (14:51)
[2018-04-05 15:10] LABS: PLATELET COUNT, AUTOMATED 154 K/uL (150-450)
--- NOTE | 2018-04-05 15:28 | RADIOLOGY IMAGING REPORT ---
FACILITY: [facility] - [place] PATIENT NAME: Master Bush : 1965 MR: [id number] V: [id number] EXAM DATE: ORDERING PHYSICIAN: DONIS FLOOD TECHNOLOGIST: Location: [facility] - [place] Patient: Master Bush : 1965 Visit/Account:[id number] Date of Sevice: 04/05/2018 EXAMINATION: Chest 2 Views HISTORY: Fever. COMPARISON: 09/22/2017. FINDINGS: The lungs are clear. No focal consolidation or pleural fluid. No pneumothorax. Normal cardiomediastinal silhouette, with normal heart size and pulmonary vascularity. No acute osseous findings. IMPRESSION: No evidence of acute cardiopulmonary disease. Stable exam. Report Dictated By: Blair Godinez MD at 04/05/2018 3:22 PM Report E-Signed By: Blair Godinez MD at 04/05/2018 3:24 PM WSN:[id number]
--- NOTE | 2018-04-05 16:17 | RADIOLOGY IMAGING REPORT ---
FACILITY: [facility] - [place] PATIENT NAME: Master Bush : 1965 MR: [id number] V: [id number] EXAM DATE: ORDERING PHYSICIAN: DONIS FLOOD TECHNOLOGIST: Location: [facility] - [place] Patient: Master Bush : 1965 Visit/Account:[id number] Date of Sevice: 04/05/2018 EXAMINATION: CT abdomen and pelvis without IV contrast HISTORY: Elevated white count. Hematuria. Fever. TECHNIQUE: Axial CT images of the abdomen and pelvis were obtained without IV contrast, with tom l and sagittal 2D reconstructed images. One of the following dose optimization techniques was utilized in the performance of this exam: Autom ated exposure control; adjustment of the mA and/or kV according to the patient's size; or use of an i terative reconstruction technique. Specific details can be referenced in the facility's radiology C T exam operational policy. COMPARISON: CT abdomen/pelvis with IV contrast 11/05/2015. FINDINGS: Evaluation of the solid and viscus parenchymal organs is limited without the benefit of IV contrast. Liver: Fatty infiltration of the liver. Gallbladder and bile ducts: Negative. Spleen: Negative. Pancreas: Negative. Adrenal glands: Negative. Kidneys: Normal size and morphology of both kidneys. No urinary calculi or hydronephrosis. Bowel and peritoneum: The small bowel and colon are normal in caliber, without evidence of obstructi on or any focal inflammatory process. Patent sigmoid anastomosis in the posterior left pelvis. Normal appendix. No free fluid or free intraperitoneal air. Pelvic structures: Negative. Lymph node assessment: Negative. Vessels: Mild vascular calcifications. Normal caliber abdominal aorta. Musculoskeletal: No acute osseous findings. Scattered degenerative changes along the spine. Body wall: Negative. Lung bases: Negative. IMPRESSION: 1. No acute intra-abdominal findings by noncontrast CT imaging. 2. Normal size and morphology of both kidneys. No urinary calculi or hydronephrosis. Report Dictated By: Blair Godinez MD at 04/05/2018 4:06 PM Report E-Signed By: Blair Godinez MD at 04/05/2018 4:13 PM WSN:[id number]
[2018-04-05] MEDS ORDERED: DOXY-179 PO (16:43)
[2018-04-05] MEDS ORDERED: DOXYCYCLINE HYCL 100 MG TAB PO ONE (16:45)
[2018-04-05 17:17] VITALS: BP 99/77
== END 2018-04-05 17:27 | disposition home or self-care (01) ==
LOC: ER 14:39
DX: R31.0 Gross hematuria (principal); N30.01 Acute cystitis with hematuria; J06.9 Acute upper respiratory infection, unspecified; F17.210 Nicotine dependence, cigarettes, uncomplicated
CPT/HCPCS: 71046; 74176; 81001; 85025; 87088; 87502; 96360; 96361; 99284; J7030; 82040; 82247; 82310; 82374; 82435; 82565; 82947; 84075; 84132; 84155; 84295; 84450; 84460; 84520

== ENCOUNTER → 2018-06-07 | Outpatient (CLI) | payer MEDICAID ==
[2014-08-29 09:15] VITALS: BMI 28.6
[~2018-06-07] MED LIST changes: +DOXY-179 PO; +METR500T15 PO; -METR500T54 PO
== END ==
LOC: LAB 14:00
PROVIDERS: ATTEND Urology
DX: N39.0 Urinary tract infection, site not specified (principal); R31.0 Gross hematuria
CPT/HCPCS: 81001

== ENCOUNTER → 2018-09-05 | Outpatient (CLI) | payer MEDICAID ==
[2014-08-29 09:15] VITALS: BMI 28.6
[~2018-09-05] MED LIST changes: +CEFP250T27 PO; +CIPDEXPT EACH EAR; +MUPI22OI28 TP
[2018-09-05 12:58] LABS: PLATELET COUNT, AUTOMATED 165 K/uL (150-450)
--- NOTE | 2018-09-05 13:00 | EKG ---
[place] [facility] [place] NAME: GISEL HAM : [id number] MR: [id number] V: [id number] EXAM DATE: ORDERING PHYSICIAN: BAIRON BARAHONA TECHNOLOGIST: VENICE Boudreaux Reason : PREOP-NOSE Blood Pressure : / mmHG Vent. Rate : 078 BPM Atrial Rate : 078 BPM P-R Int : 164 ms QRS Dur : 098 ms QT Int : 370 ms P-R-T Axes : 065 045 058 degrees QTc Int : 421 ms Normal sinus rhythm Normal ECG No previous ECGs available Confirmed by PABLITO TRAN ([id number]) on 09/05/2018 2:30:19 PM Referred By: [place] Confirmed By:PABLITO TRAN
[2018-09-05 13:17] LABS: INR 0.96
== END ==
LOC: LAB 12:37
PROVIDERS: ATTEND Otolaryngology
DX: Z01.818 Encounter for other preprocedural examination (principal); J34.2 Deviated nasal septum
CPT/HCPCS: 36415; 82040; 82247; 82310; 82374; 82435; 82565; 82947; 84075; 84132; 84155; 84295; 84450; 84460; 84520; 85025; 85610; 85730; 93005

== ENCOUNTER 2018-09-13 22:52 | Emergency (ER) | payer MEDICAID ==
[2014-08-29 09:15] VITALS: Wt 97.6 kg
--- NOTE | 2018-09-13 22:55 | ER Report ---
History and Physical Time Seen By MD: 22:55 HPI/ROS CHIEF COMPLAINT: Shortness of breath HISTORY OF PRESENT ILLNESS: 53-year-old male smoker who underwent recent nasal surgery for deviated septum. He presents home after having surgery earlier today. He is coughing up quite a bit of dark blood that straining down the posterior oropharynx. He is on no blood thinners or aspirin. He's changes dressing as instructed by Dr. Godinez. Patient notes no fever or chills. Patient denies chest pain. Patient denies leg swelling or calf pain. He does note that his feet were hanging off the procedure table in the midcalf area. He did have some soreness in the middle of his calves. REVIEW OF SYSTEMS: Respiratory: As above Cardiovascular: No chest pain, no palpitations. Gastrointestinal: No vomiting, no abdominal pain. Musculoskeletal: No back pain. Allergies: Coded Allergies: codeine (Verified Allergy, Mild, 08/24/18) oxycodone (Verified Allergy, Mild, BAD NIGHTMARES, 08/24/18) gabapentin (Verified Allergy, Unknown, 08/24/18) Uncoded Allergies: BLEACH (Allergy, Unknown, 08/23/13) Home Meds Reported Medications Tetracycline Hcl (TETRACYCLINE HCL) 500 Mg Capsule, 500 MG PO BID, CAPSULE 09/13/18 Hydrocodone Bit/Acetaminophen (HYDROCODON-ACETAMINOPHEN 5-325) 1 Each Tablet, 1 EACH PO Q4-6H, TAB 09/13/18 Discontinued Scripts Clindamycin Hcl (CLINDAMYCIN HCL) 300 Mg Capsule, 300 MG PO BID for 10 Days, #20 CAPSULE Prov:JUANA SMART PA-C 09/05/18 Ciprofloxacin/Dexamethasone 0.3%-0.1% Otic Prabhakar (CIPRODEX 0.3%-0.1% OTIC SUSP) 7.5 Ml Soln, 4 DROP EACH EAR BID for 7 Days, #1 BOT 1 Refill Prov:JUANA SMART PA-C 08/23/18 Mupirocin (MUPIROCIN) 22 Gm Oint...g., 1 SHERITA TP BID for 14 Days, #1 TUBE 2 Refills Prov:JUANA SMART PA-C 08/23/18 Reviewed Nurses Notes: Yes Old Medical Records Reviewed: Yes Hx Smoking: Yes (1.5 PPD SMOKER, 1 CAN CHEW EVERY 2 MOS.) Smoking Status: Current: Every Day Smoker Exposure to Second Hand Smoke?: No Hx Substance Use Disorder: No Hx Alcohol Use: Yes Constitutional Vital Sign - Last 24 Hours 09/13/18 09/13/18 09/13/18 09/13/18 22:56 23:05 23:07 23:22 Temp 99.4 Pulse 115 115 96 Resp 20 34 15 B/P (MAP) 137/81 124/78 (93) Pulse Ox 92 89 89 O2 Delivery Room Air 09/13/18 09/13/18 09/13/18 09/13/18 23:23 23:30 23:30 23:30 Pulse 104 Resp 20 B/P (MAP) 110/79 (89) Pulse Ox 94 O2 Delivery Oxy Mask O2 Flow Rate 2.0 1.5 09/13/18 09/13/18 09/14/18 09/14/18 23:37 23:52 00:00 00:30 Pulse 108 105 Resp 30 35 B/P (MAP) 151/83 (105) 120/71 (87) Pulse Ox 90 90 09/14/18 09/14/18 09/14/18 09/14/18 00:50 01:00 01:05 01:10 Pulse 102 109 115 Resp 17 27 22 B/P (MAP) 135/71 (92) Pulse Ox 91 84 88 09/14/18 01:20 Pulse 106 Resp 24 Pulse Ox 88 Intake and Output 09/13/18 09/13/18 09/14/18 15:01 23:01 07:01 Intake Total 1000 ml Balance 1000 ml Physical Exam General Appearance: The patient is alert, has no immediate need for airway protection and no current signs of toxicity. Vital signs stable, afebrile, pulse ox normal HEENT: Pupils equal and round no injection. TMs normal, nasal packing intact with dark blood encrusted gauze. Posterior oropharynx shows some dark blood and clots draining posteriorly, which would be expected. Respiratory: Chest is non tender, lungs are clear to auscultation. Expiratory wheezing noted throughout Cardiac: regular rate and rhythm Gastrointestinal: Abdomen is soft and non tender, no masses, bowel sounds kell l. Musculoskeletal: Neck: Neck is supple and non tender. Extremities have full range of motion and are non tender. No edema, no calf tenderness Skin: No rashes or lesions. DIFFERENTIAL DIAGNOSIS: After history and physical exam differential diagnosis was considered for shortness of breath including but not limited to pulmonary infectious process, COPD, asthma, pulmonary embolus and congestive heart failure. Medical Decision Making Data Points Result Diagram: 09/13/18230909/13/182309 Laboratory Hematology Test 09/13/18 23:10 Red Blood Count 4.99 M/uL (4.00-5.60) Mean Corpuscular Volume 98.1 fL (80.0-96.0) Mean Corpuscular Hemoglobin 34.3 pg (26.0-33.0) Mean Corpuscular Hemoglobin Concent 35.0 g/dL (32.0-36.0) Red Cell Distribution Width 13.9 % (11.5-14.5) Mean Platelet Volume 10.4 fL (7.2-11.1) Neutrophils (%) (Auto) 88.9 % (39.4-72.5) Lymphocytes (%) (Auto) 6.7 % (17.6-49.6) Monocytes (%) (Auto) 3.9 % (4.1-12.4) Eosinophils (%) (Auto) 0.0 % (0.4-6.7) Basophils (%) (Auto) 0.5 % (0.3-1.4) Nucleated RBC Relative Count (auto) 0.0 /100WBC Neutrophils # (Auto) 12.1 K/uL (2.0-7.4) Lymphocytes # (Auto) 0.9 K/uL (1.3-3.6) Monocytes # (Auto) 0.5 K/uL (0.3-1.0) Eosinophils # (Auto) 0.0 K/uL (0.0-0.5) Basophils # (Auto) 0.1 K/uL (0.0-0.1) Nucleated RBC Absolute Count (auto) 0.00 K/uL Prothrombin Time 12.9 seconds (12.0-14.4) Prothromb Time International Ratio 0.97 Activated Partial Thromboplast Time 29 seconds (23-35) D-Dimer Quantitative (PE/DVT) 2.93 ug/ml (0-0.50) Sodium Level 138 mmol/L (137-145) Potassium Level 3.6 mmol/L (3.5-5.0) Chloride Level 102 mmol/L (98-107) Carbon Dioxide Level 24 mmol/L (22-30) Blood Urea Nitrogen 14 mg/dl (9-21) Creatinine 1.30 mg/dl (0.66-1.25) Glomerular Filtration Rate Calc 57.5 Random Glucose 156 mg/dl (75-110) Calcium Level 10.6 mg/dl (8.4-10.2) Total Bilirubin 0.5 mg/dl (0.2-1.3) Aspartate Amino Transf (AST/SGOT) 69 U/L (0-35) Alanine Aminotransferase (ALT/SGPT) 45 U/L (0-56) Alkaline Phosphatase 63 U/L (0-126) Troponin I < 0.012 ng/ml B-Type Natriuretic Peptide 33 pg/ml (0-100) Total Protein 7.8 g/dl (6.3-8.2) Albumin 4.1 g/dl (3.5-5.0) Chemistry Test 09/13/18 23:10 White Blood Count 13.6 k/uL (4.5-11.0) Red Blood Count 4.99 M/uL (4.00-5.60) Hemoglobin 17.1 g/dL (14.0-18.0) Hematocrit 48.9 % (42.0-52.0) Mean Corpuscular Volume 98.1 fL (80.0-96.0) Mean Corpuscular Hemoglobin 34.3 pg (26.0-33.0) Mean Corpuscular Hemoglobin Concent 35.0 g/dL (32.0-36.0) Red Cell Distribution Width 13.9 % (11.5-14.5) Platelet Count 167 K/uL (150-450) Mean Platelet Volume 10.4 fL (7.2-11.1) Neutrophils (%) (Auto) 88.9 % (39.4-72.5) Lymphocytes (%) (Auto) 6.7 % (17.6-49.6) Monocytes (%) (Auto) 3.9 % (4.1-12.4) Eosinophils (%) (Auto) 0.0 % (0.4-6.7) Basophils (%) (Auto) 0.5 % (0.3-1.4) Nucleated RBC Relative Count (auto) 0.0 /100WBC Neutrophils # (Auto) 12.1 K/uL (2.0-7.4) Lymphocytes # (Auto) 0.9 K/uL (1.3-3.6) Monocytes # (Auto) 0.5 K/uL (0.3-1.0) Eosinophils # (Auto) 0.0 K/uL (0.0-0.5) Basophils # (Auto) 0.1 K/uL (0.0-0.1) Nucleated RBC Absolute Count (auto) 0.00 K/uL Prothrombin Time 12.9 seconds (12.0-14.4) Prothromb Time International Ratio 0.97 Activated Partial Thromboplast Time 29 seconds (23-35) D-Dimer Quantitative (PE/DVT) 2.93 ug/ml (0-0.50) Glomerular Filtration Rate Calc 57.5 Calcium Level 10.6 mg/dl (8.4-10.2) Total Bilirubin 0.5 mg/dl (0.2-1.3) Aspartate Amino Transf (AST/SGOT) 69 U/L (0-35) Alanine Aminotransferase (ALT/SGPT) 45 U/L (0-56) Alkaline Phosphatase 63 U/L (0-126) Troponin I < 0.012 ng/ml B-Type Natriuretic Peptide 33 pg/ml (0-100) Total Protein 7.8 g/dl (6.3-8.2) Albumin 4.1 g/dl (3.5-5.0) Coagulation Test 09/13/18 23:10 Prothrombin Time 12.9 seconds Prothromb Time International Ratio 0.97 Activated Partial Thromboplast Time 29 seconds D-Dimer Quantitative (PE/DVT) 2.93 ug/ml EKG/Imaging EKG Interpretation 12 lead EK Rhythm: normal sinus rhythm [place]: normal QRS: normal ST segments: normal, comparison to previous EKG dated 09/05/18, no significant change, lead to his low voltage and probably was not having good contact on the chest compared to the previous one. Imaging Results: CT scan of the CTA pulmonary angiogram was obtained. The results of the study are CT CTA CHEST W CON (PE STUDY) HISTORY: Status post surgery. Dyspnea, cough, and elevated d-dimer. COMPARISON: Prior chest x-rays from 04/15/2018 and dating to 03/01/2010. No prior chest CT. TECHNIQUE: Pulmonary embolus protocol - Thin-slice axial imaging of the chest was performed during maximal pulmonary arterial opacification with intravenous nonionic iodinated contrast. 3D coronal slab MIPs and 2D reconstructions in the coronal and sagittal planes were performed to aid in pulmonary embolus detection. [employer] images have been stored on PACS. One of the following dose optimization techniques was utilized in the performance of this exam: Automated exposure control; adjustment of the mA and/or kV according to the patient's size; or use of an iterative reconstruction technique. Specific details can be referenced in the facility's radiology CT exam operational policy. CONTRAST: 75 mL of IV Isovue-370. FINDINGS: PULMONARY ARTERIES: There is adequate opacification of the pulmonary arteries to the segmental branches. There are no filling defects in the visible pulmonary arteries. Pulmonary arteries are normal in caliber. THORACIC INLET: Normal. AORTA: No aneurysm or dissection. There is mild atherosclerosis of the aorta. HEART/PERICARDIUM: The heart is normal. There is no ventricular septal deviation. There is no pericardial effusion. There is no coronary artery calcification. MEDIASTINUM/VALERIA: Normal mediastinum. No lymphadenopathy. LUNGS/PLEURA: No pleural effusion. There is minimal dependent atelectasis. There are a few small lymph nodes along the right major and minor fissures. There is mild centrilobular and paraseptal emphysema, greatest in the left upper lobe. No pneumothorax. Airways are normal. There is a right paratracheal air cyst (image 18 series 7). UPPER ABDOMEN: Normal. MUSCULOSKELETAL/VERTEBRA/BODY WALL: There is mild degenerative change of the spine. There is mild degenerative change of the glenohumeral joints. IMPRESSION: 1. No pulmonary embolism. 2. Mild emphysema. The study was read by the radiologist. I viewed the images myself on the PACS system. ED Course/Re-evaluation Clinical Indication for ER IV: Hydration, IV Access ED Course Patient was admitted to an examination room. H&P was done. The differential diagnoses was considered. On clinical examination. Patient is stable vital signs on arrival. He is mildly short of breath. He doesn't expiratory wheezing on lung fong. His pulse ox is borderline at 89%. He has no chest pain or lower extremity edema. Peripheral IV established. He is given signs Medrol 125 mg. A DuoNeb improved his breathing significantly. His d-dimer is grossly elevated to 2.93. A CTA pulmonary angiogram is ordered to rule out pulmonary embolism. The CTA pulmonary and a gram is unremarkable. Results are discussed with patient. He is advised to continue on all medications and plan as per Dr. Godinez. He's advised to follow-up with Dr. Godinez as needed. Decision to Disposition Date: Sep 14, 2018 Decision to Disposition Time: 01:04 Depart Departure Latest Vital Signs Vital Signs Date Time Temp Pulse Resp B/P (MAP) Pulse Ox O2 Delivery O2 Flow Rate FiO2 09/14/18 01:20 106 24 88 09/14/18 01:00 135/71 (92) 09/13/18 23:30 Oxy Mask 1.5 09/13/18 22:56 99.4 Impression: Primary Impression: S/P nasal surgery Additional Impressions: Dyspnea COPD (chronic obstructive pulmonary disease) Condition: Improved Disposition: HOME OR SELF-CARE Referrals: OSMIN QUINTEROS DO (PCP) Patient Instructions: COPD (Chronic Obstructive Pulmonary Disease) (ED) Additional Instructions: Follow-up with your nasal surgeon and/or primary care Problem Qualifiers Additional Impressions: Dyspnea Dyspnea type: unspecified Qualified Codes: R06.00 - Dyspnea, unspecified COPD (chronic obstructive pulmonary disease) COPD type: unspecified COPD Qualified Codes: J44.9 - Chronic obstructive pulmonary disease, unspecified ENOCH MAHER DO Sep 13, 2018 22:55
[2018-09-13] MEDS ORDERED: ALBUTEROL/IPRATROPIUM 3 ML NEB NEB ONE (23:00)
[2018-09-13] MEDS ORDERED: NS(*) 0.9% 1000 ML BAG 1,000 ML IV ONE (23:00)
[2018-09-13] MEDS ORDERED: TETR500C2 PO (23:04)
[2018-09-13] MEDS ORDERED: LOR5/325 PO (23:04)
[2018-09-13 23:26] LABS: PLATELET COUNT, AUTOMATED 167 K/uL (150-450)
[2018-09-13 23:39] LABS: INR 0.97
[2018-09-14] MEDS ORDERED: IOPAMIDOL 76% 100 ML INFUS BTL 100 ML ONE (00:02)
[2018-09-14] MEDS ORDERED: NS(*) 0.9% 50 ML BAG 50 ML ONE (00:02)
--- NOTE | 2018-09-14 00:50 | RADIOLOGY IMAGING REPORT ---
FACILITY: [facility] PATIENT NAME: Master Bush : 1965 MR: [id number] V: [id number] EXAM DATE: ORDERING PHYSICIAN: ENOCH MHAER TECHNOLOGIST: Location: [facility] Patient: Master Bush : 1965 Visit/Account:[id number] Date of Sevice: 09/13/2018 CT CTA CHEST W CON (PE STUDY) HISTORY: Status post surgery. Dyspnea, cough, and elevated d-dimer. COMPARISON: Prior chest x-rays from 04/15/2018 and dating to 03/01/2010. No prior chest CT. TECHNIQUE: Pulmonary embolus protocol - Thin-slice axial imaging of the chest was performed during ma ximal pulmonary arterial opacification with intravenous nonionic iodinated contrast. 3D coronal slab MIPs and 2D reconstructions in the coronal and sagittal planes were performed to aid in pulmonary emb olus detection. 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 One of the following dose optimization techniques was utilized in the performance of this exam: Autom ated exposure control; adjustment of the mA and/or kV according to the patient's size; or use of an i terative reconstruction technique. Specific details can be referenced in the facility's radiology CT exam operational policy. CONTRAST: 75 mL of IV Isovue-370. FINDINGS: PULMONARY ARTERIES: There is adequate opacification of the pulmonary arteries to the segmental branch es. There are no filling defects in the visible pulmonary arteries. Pulmonary arteries are normal in caliber. THORACIC INLET: Normal. AORTA: No aneurysm or dissection. There is mild atherosclerosis of the aorta. HEART/PERICARDIUM: The heart is normal. There is no ventricular septal deviation. There is no pericar dial effusion. There is no coronary artery calcification. MEDIASTINUM/VALERIA: Normal mediastinum. No lymphadenopathy. LUNGS/PLEURA: No pleural effusion. There is minimal dependent atelectasis. There are a few small lymp h nodes along the right major and minor fissures. There is mild centrilobular and paraseptal emphysem a, greatest in the left upper lobe. No pneumothorax. Airways are normal. There is a right paratrachea l air cyst (image 18 series 7). UPPER ABDOMEN: Normal. MUSCULOSKELETAL/VERTEBRA/BODY WALL: There is mild degenerative change of the spine. There is mild deg enerative change of the glenohumeral joints. IMPRESSION: 1. No pulmonary embolism. 2. Mild emphysema. Report Dictated By: Shayla Manzano at 09/14/2018 12:34 AM Report E-Signed By: Shayla Manzano at 09/14/2018 12:46 AM [id number]
[2018-09-14 01:00] VITALS: BP 135/71
[2018-09-14] MEDS ORDERED: APAP/HYDROCODONE 325/5 TAB PO ONE (01:00)
--- NOTE | 2018-09-14 05:18 | EKG ---
FACILITY: [facility] PATIENT NAME: GISEL HAM : [id number] MR: [id number] V: [id number] EXAM DATE: ORDERING PHYSICIAN: ENOCH MAHER TECHNOLOGIST: TONY Boudreaux Reason : DYSPNEA Blood Pressure : / mmHG Vent. Rate : 077 BPM Atrial Rate : 077 BPM P-R Int : 190 ms QRS Dur : 100 ms QT Int : 356 ms P-R-T Axes : 049 019 052 degrees QTc Int : 402 ms Sinus rhythm with PACs Probable left atrial enlargement Nonspecific interventricular conduction delay Confirmed by JEAN BROWN [id number] on 09/14/2018 6:08:22 AM Referred By: Confirmed By:JEAN BROWN
== END 2018-09-14 01:25 | disposition home or self-care (01) ==
LOC: ER 23:20
DX: R06.02 Shortness of breath (principal); J44.9 Chronic obstructive pulmonary disease, unspecified
CPT/HCPCS: 71275; 83880; 84484; 85025; 85379; 85610; 85730; 93005; 94640; 96360; 96361; 99284; J7030; J7050; J7620; Q9967; 82040; 82247; 82310; 82374; 82435; 82565; 82947; 84075; 84132; 84155; 84295; 84450; 84460; 84520